=== PATIENT | female | born 1950 | race Caucasian/White ===

== ENCOUNTER → 2022-09-03 | Outpatient (CLI) | payer MEDICARE ==
--- NOTE | 2022-09-03 17:15 | Diagnostic Imaging Report ---
INDICATION: Bilateral shoulder pain and decreased range of motion. AP and transscapular views of both shoulders are obtained. FINDINGS: No fracture or acute bony abnormality is seen. There is mild degenerative change of the AC joints and glenohumeral joints. IMPRESSION: Mild degenerative findings with no acute abnormality of either shoulder. Dictated by: Dictated on workstation # [id number]
== END ==
LOC: RAD FS 11:35
PROVIDERS: ATTEND Nurse Practitioner Family
DX: M19.012 Primary osteoarthritis, left shoulder (principal); M19.011 Primary osteoarthritis, right shoulder